=== PATIENT | female | born 1960 | race Caucasian/White ===

== ENCOUNTER → 2016-08-31 | Outpatient (CLI) | payer OTHER ==
--- NOTE | 2016-08-31 14:21 | DX ---
Right Foot - 3 views Indication: Trauma. Pain. Technique: AP, oblique, and lateral views. Comparison: Bilateral feet dated July 01, 2016 Findings: The alignment of the first metatarsal osteotomy and well seated cortical screws is unchange d. Progressive healing callus is developing along the medial and lateral margin of the osteotomy. Min imal soft tissue swelling along the medial aspect of the first metatarsophalangeal joint persists. Bu nionectomy defect is unchanged. The remainder foot is normal. Impression: Healing first metatarsal osteotomy in good alignment.
== END ==
LOC: BMCIMAGING 12:31
PROVIDERS: ATTEND Podiatrist Foot & Ankle Surgery
DX: Z47.89 Encounter for other orthopedic aftercare (principal); M79.671 Pain in right foot

== ENCOUNTER → 2017-04-29 | Outpatient (CLI) | payer OTHER | LOC: BMCIMAGING 15:07 | PROVIDERS: ATTEND Nurse Practitioner Adult Health | DX: Z12.31 Encounter for screening mammogram for malignant neoplasm of breast (principal) | CPT/HCPCS: G0202 ==

== ENCOUNTER → 2017-05-03 | Outpatient (CLI) | payer OTHER | LOC: BMCIMAGING 10:47 | PROVIDERS: ATTEND Nurse Practitioner Adult Health | DX: Z03.89 Encounter for observation for other suspected diseases and conditions ruled out (principal) | CPT/HCPCS: G0206 ==

== ENCOUNTER 2017-09-15 07:48 | Emergency (ER) | payer OTHER ==
[2017-09-15 07:54] VITALS: O2SAT 95
--- NOTE | 2017-09-15 08:00 | CPEKG ---
Heart Rate: 72 RR Interval: 833 P-R Interval: 156 QRSD Interval: 138 QT Interval: 444 QTC Interval: 486 P Milton: 71 QRS Milton: 105 T Wave Milton: 23 EKG Severity - ABNORMAL ECG - EKG Impression: SINUS RHYTHM EKG Impression: RBBB AND LPFB Electronically Signed By: Manuel Terrazas 15-Sep-2017 08:58:05
--- NOTE | 2017-09-15 08:02 | EDPHY ---
H & P Stated Complaint: r /middle cp Time Seen by Provider: 09/15/17 07:50 HPI/ROS: CHIEF COMPLAINT: Intermittent chest pain HISTORY OF PRESENT ILLNESS: The patient presents to the ED for evaluation of intermittent chest pain for the past 10 days. The patient denies any exertional chest pain or shortness of breath. She does report a mild right- sided pleuritic symptom today. The patient denies any asymmetric calf pain or swelling. The patient denies prior history of PE or DVT. The patient denies any abdominal pain, nausea or vomiting. The patient has been using some Flovent Zantac without significant change in her symptoms. The patient is scheduled to travel tomorrow and was concerned about the possibility of a blood clot prompting her visit to the emergency department today. Her only complaint currently is mild right-sided pleuritic chest pain. REVIEW OF SYSTEMS: A comprehensive 10 point review of systems is otherwise negative aside from elements mentioned in the history of present illness. Source: Patient Exam Limitations: No limitations - Personal History Current Tetanus/Diphtheria Vaccine: Yes - Medical/Surgical History Hx Asthma: Yes Hx Chronic Respiratory Disease: No Hx Diabetes: No Hx Cardiac Disease: Yes Hx Renal Disease: No Hx Cirrhosis: No Hx Alcoholism: No Hx HIV/AIDS: No Hx Splenectomy or Spleen Trauma: No Other PMH: Hepatitis-C, asthma, atrial tach/RBBB - Social History Smoking Status: Never smoked - Physical Exam Exam: General Appearance: Alert, no distress Eyes: Pupils equal and round no pallor or injection ENT, Mouth: Mucous membranes moist Respiratory: There are no retractions, lungs are clear to auscultation Cardiovascular: Regular rate and rhythm Gastrointestinal: Abdomen is soft and nontender, no masses, bowel sounds normal Neurological: A&O, normal motor function, normal sensory exam, normal cranial nerves Skin: Warm and dry, no rashes Musculoskeletal: Neck is supple nontender Extremities: symmetrical, full range of motion Constitutional: Initial Vital Signs Temperature (C) 36.8 C 09/15/17 07:50 Heart Rate 84 09/15/17 07:50 Respiratory Rate 18 09/15/17 07:50 Blood Pressure 149/92 H 09/15/17 07:50 O2 Sat (%) 95 09/15/17 07:50 O2 Delivery Mode Room Air Allergies/Adverse Reactions: No Known Allergies Allergy (Verified 09/15/17 07:49) Home Medications: Medication Instructions Recorded Cymbalta 09/15/17 DULoxetine 09/15/17 Medical Decision Making - Diagnostics EKG Interpretation: EKG: Complete interpretation has been separately recorded in the [employer] archive. Summary impression: Sinus rhythm, bifascicular block. No ST segment elevation or depression noted. No prior EKG to compare. The patient does report a history of a known RBBB. Imaging Results: Imaging Impressions Chest X-Ray 09/15/17 08:43 Impression: No active cardiopulmonary disease seen.. ED Course/Re-evaluation: The patient presents to the ED for evaluation of several days of atypical chest pain. The patient has no risk factors for coronary artery disease. The patient is low risk by Wells criteria. The patient's D-dimer is negative which I feel adequately excludes pulmonary embolism. The patient's laboratory studies including CBC, serum chemistries, lipase, troponin and liver function tests are normal. The patient has been informed of her evaluation. It is certainly possible she is experiencing symptoms secondary to gastroesophageal reflux disease. I will recommend that she begin taking Zantac 150 mg twice daily. Patient has been instructed to follow up with her regular physician at [facility] for any ongoing symptoms. She is instructed to return to the emergency department for markedly worsening symptoms, exertional symptoms or other concerns. Differential Diagnosis: Differential diagnosis considered includes acute coronary syndrome, pulmonary embolism, esophageal spasm, myocardial infarction, pancreatitis, cholecystitis - Data Points Laboratory Results: Laboratory Results 09/15/17 07:50 09/15/17 07:50 09/15/17 09/15/17 09/15/17 07:50 07:50 07:50 WBC 8.63 10^3/uL 10^3/uL (3.80-9.50) RBC 5.14 10^6/uL 10^6/uL (4.18-5.33) Hgb 14.9 g/dL g/dL (12.6-16.3) Hct 44.7 % % (38.0-47.0) MCV 87.0 fL fL (81.5-99.8) MCH 29.0 pg pg (27.9-34.1) MCHC 33.3 g/dL g/dL (32.4-36.7) RDW 13.5 % % (11.5-15.2) Plt Count 332 10^3/uL 10^3/uL (150-400) MPV 8.7 fL fL (8.7-11.7) Neut % (Auto) 59.0 % % (39.3-74.2) Lymph % (Auto) 30.0 % % (15.0-45.0) Miner % (Auto) 8.2 % % (4.5-13.0) Eos % (Auto) 1.9 % % (0.6-7.6) Baso % (Auto) 0.7 % % (0.3-1.7) Nucleat RBC Rel Count 0.0 % % (0.0-0.2) Absolute Neuts (auto) 5.09 10^3/uL 10^3/uL (1.70-6.50) Absolute Lymphs (auto) 2.59 10^3/uL 10^3/uL (1.00-3.00) Absolute Monos (auto) 0.71 10^3/uL 10^3/uL (0.30-0.80) Absolute Eos (auto) 0.16 10^3/uL 10^3/uL (0.03-0.40) Absolute Basos (auto) 0.06 10^3/uL 10^3/uL (0.02-0.10) Absolute Nucleated RBC 0.00 10^3/uL 10^3/uL (0-0.01) Immature Gran % 0.2 % % (0.0-1.1) Immature Gran # 0.02 10^3/uL 10^3/uL (0.00-0.10) D-Dimer 0.48 ug/mLFEU ug/mLFEU (0.00-0.50) Sodium 139 mEq/L mEq/L (135-145) Potassium 4.1 mEq/L mEq/L (3.5-5.2) Chloride 103 mEq/L mEq/L (97-110) Carbon Dioxide 21 mEq/l L mEq/l (22-31) Anion Gap 15 mEq/L mEq/L (8-16) BUN 12 mg/dL mg/dL (7-23) Creatinine 0.6 mg/dL mg/dL (0.6-1.0) Estimated GFR > 60 Glucose 107 mg/dL H mg/dL (70-100) Calcium 10.4 mg/dL mg/dL (8.5-10.4) Troponin I < 0.012 ng/mL ng/mL (0.000-0.034) Medications Given: Discontinued Medications Sodium Chloride (Ns) 1,000 mls @ 0 mls/hr IV ONCE ONE; Wide Open PRN Reason: Protocol Stop: 09/15/17 08:12 Last Admin: 09/15/17 08:23 Dose: 1,000 mls Departure - Departure Disposition: Home, Routine, Self-Care Clinical Impression: Chest pain Condition: Good Instructions: Chest Pain (ED) Additional Instructions: 1. The workup in the emergency department today demonstrates no evidence of a heart attack, pulmonary issue a blood clot. 2. I do recommend beginning Zantac 150 mg twice daily for possible gastroesophageal reflux disease. 3. Please return to the emergency department for any worsening symptoms, exertional chest pain, abdominal pain, vomiting or other concerns. Referrals: Grace De La Paz MD [Primary Care Provider] - As per Instructions
[2017-09-15] MEDS ORDERED: NS 1,000 ML IV ONE (08:11)
[2017-09-15 08:20] LABS: PLATELET COUNT 332 10^3/uL (150-400)
[2017-09-15 10:24] VITALS: BP 144/86; PULSE 74; RESP 14; TEMP 98.1
== END 2017-09-15 10:24 | disposition home or self-care (01) ==
DX: R07.9 Chest pain, unspecified (principal); J45.909 Unspecified asthma, uncomplicated

== ENCOUNTER → 2018-06-05 | Outpatient (CLI) | payer OTHER | LOC: BMCIMAGING 13:25 | PROVIDERS: ATTEND Nurse Practitioner Adult Health | DX: Z12.31 Encounter for screening mammogram for malignant neoplasm of breast (principal); Z13.820 Encounter for screening for osteoporosis; Z78.0 Asymptomatic menopausal state ==

== ENCOUNTER → 2018-12-07 | Outpatient (CLI) | payer OTHER | LOC: FIMAGING 09:13 | PROVIDERS: ATTEND Nurse Practitioner Adult Health | DX: K59.00 Constipation, unspecified (principal); K21.9 Gastro-esophageal reflux disease without esophagitis; M41.86 Other forms of scoliosis, lumbar region; Z87.19 Personal history of other diseases of the digestive system ==

== ENCOUNTER → 2019-01-01 | Outpatient (CLI) | payer OTHER | LOC: BMCIMAGING 12:03 ==

== ENCOUNTER → 2019-01-04 | Outpatient (CLI) | payer OTHER | LOC: CIMAGING 11:13 ==